=== PATIENT | male | born 1995 | race Caucasian/White ===

== ENCOUNTER 2021-09-26 08:35 | Emergency (ER) | payer OTHER, SELFPAY ==
[2021-09-26 08:35] VITALS: BP 129/80; PULSE 67; RESP 19; TEMP 36.3; O2SAT 99; BMI 22.6
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
[2021-09-26 09:06] LABS: Microscopic, Urine URINE MICROSCOPIC (MICROSCOPIC)
[2021-09-26 09:11] LABS: Appearance,Urine CLEAR (Clear); Bilirubin,Urine Negative (Negative); Blood, Urine Negative (Negative); Color,Urine YELLOW (Yellow); Glucose,Urine (UA) Negative (Negative); Ketones,Urine Negative (Negative); Leukocyte Esterase,Urine Negative (Negative); Nitrate,Urine Negative (Negative); Protein,Urine Negative (Negative); Specific Gravity, Urine >= 1.030 (1.005-1.030); Urobilinogen,Urine 0.2 EU/dl (0.2)
[2021-09-26 09:12] VITALS: BP 129/80; PULSE 67; RESP 19; TEMP 36.3; O2SAT 99
[2021-09-26 09:25] LABS: Bacteria,Urine Trace /lpf; RBC,Urine Occasional #/hpf (0-3)
[2021-09-28 05:36] LABS: Neisseria gonorrhoeae, NAA Negative (Negative)
== END 2021-09-26 09:20 | disposition home or self-care (01) ==
PROVIDERS: Emergency Provider Nurse Practitioner; PCP Internal Medicine Adolescent Medicine
DX: N48.89 Other specified disorders of penis (principal); R21 Rash and other nonspecific skin eruption; Z20.2 Contact with and (suspected) exposure to infections with a predominantly sexual mode of transmission
CPT/HCPCS: 81001; 87086; 87491; 87591; 96372; 99212; G0463; J0696

== ENCOUNTER 2023-12-31 17:37 | Emergency (ER) | payer SELFPAY ==
[2023-12-31] VITALS (7 sets, daily range): BP systolic 116–164; BP diastolic 73–90; PULSE 65–88; RESP 15–20; TEMP 36.8–37.2; O2SAT 96–99; BMI 23.0
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
[2023-12-31 17:58] LABS: Albumin Level 4.8 g/dl (3.5-5.0); Chloride 108 mmol/L (98-107); Potassium 3.9 mmoL/L (3.5-5.1); Sodium 139 mmol/L (136-145)
--- NOTE | 2023-12-31 17:58 | PC.NURSE ---
pt out of room with Rad for CT
[2023-12-31 17:59] LABS: Basophils # 0.1 K/mm3 (0-0.2); Basophils % 0.8 % (0.1-2.0); Eosinophils # 0.2 K/mm3 (0.0-0.4); Eosinophils % 1.5 % (0.1-12.0); Hematocrit 47.8 % (42.0-52.0); Hemoglobin 15.8 g/dL (14.1-18.0); Lymphocytes # 2.9 K/mm3 (0.7-4.5); Lymphocytes % 28.1 % (10-50); Mean Corpuscular Hemoglobin 32.7 pg (27.0-31.2); Mean Corpuscular Volume 99.2 fl (80-94); Mean Platelet Volume 8.3 fl (7.4-10.4); Monocytes # 0.6 K/mm3 (0.1-1.0); Monocytes % 5.8 % (1.7-9.3); Neutrophils # 6.6 K/mm3 (1.8-7.8); Neutrophils % 63.8 % (37.0-80.0); Platelet Count 208 K/mm3 (142-424); Red Blood Count 4.82 M/mm3 (4.60-6.20); Red Cell Distribution Width 13.2 % (11.5-17.5); White Blood Count 10.4 K/mm3 (4.8-10.8)
[2023-12-31 18:01] LABS: Alanine Aminotransferase 26 U/L (12-78); Albumin/Globulin Ratio 1.8 (1.1-1.8); Alkaline Phosphatase 79 U/L (38-126); Anion Gap 7.9 mEq/L (5-15); Aspartate Amino Transferase 37 U/L (17-59); Bilirubin,Total 0.6 mg/dl (0.2-1.3); Blood Urea Nitrogen 23 mg/dl (9-20); Carbon Dioxide 27 mmol/L (22.0-30.0); Creatinine Clearance Estimated 115 mL/min (50-200); Estimated Glomerular Filt Rate 88 ml/min (>60); GFR (African American) 107 ML/MIN (>60); Globulin 2.7 g/dL (1.3-3.2); Total Protein,Serum 7.5 g/dl (6.3-8.2)
[2023-12-31 18:02] LABS: Calcium 9.3 mg/dl (8.4-10.2); Glucose 90 mg/dl (74-100)
[2023-12-31 18:06] LABS: Activated Partial Thrombo Time 26.3 seconds (22.8-30.6); INR 0.95 (0.9-1.1); Prothrombin Time 10.7 seconds (10.1-12.5)
[2023-12-31] MEDS: 0.9 % SODIUM CHLORIDE 50 ML VIAL IV (18:16)
[2023-12-31] MEDS: SODIUM CHLORIDE 0.9% 10ML SYR (RAD ONLY) 10 ML IV (18:16)
[2023-12-31] MEDS: IOPAMIDOL-370 (76%);100ML BOTTLE 80 ML IV (18:16)
--- NOTE | 2023-12-31 18:20 | PC.NURSE ---
PT RETURNED FROM CT
[2023-12-31] MEDS: ACETAMINOPHEN 1,000MG/100ML VIAL 1000 MG IV (18:26)
[2023-12-31] MEDS: KETOROLAC 30MG/ML VIAL 15 MG IV (18:27)
[2023-12-31] MEDS: LACTATED RINGERS 1000ML 1,000 ML 999 ML IV (18:27)
--- NOTE | 2023-12-31 18:39 | PC.NURSE ---
PT RETURNED FROM XR
--- NOTE | 2023-12-31 18:51 | PC.NURSE ---
called RAD to power share images to [facility] at this time.
--- NOTE | 2023-12-31 18:56 | PC.NURSE ---
calling [facility] at this time.
--- NOTE | 2023-12-31 19:02 | PC.NURSE ---
on phone with at this time.
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
[2023-12-31 19:13] LABS: Microscopic, Urine URINE MICROSCOPIC (MICROSCOPIC)
[2023-12-31 19:18] LABS: Appearance,Urine CLEAR (Clear); Bilirubin,Urine Negative (Negative); Blood, Urine Negative (Negative); Color,Urine YELLOW (Yellow); Glucose,Urine (UA) Negative (Negative); Ketones,Urine Negative (Negative); Leukocyte Esterase,Urine Negative (Negative); Nitrate,Urine Negative (Negative); PH,Urine 6.5 (5.0-8.5); Protein,Urine Negative (Negative); Specific Gravity, Urine 1.015 (1.005-1.030); Urobilinogen,Urine 0.2 EU/dl (0.2)
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
[2023-12-31 19:31] LABS: RBC,Urine Occasional #/hpf (0-3); Squamous Epithelial Cell,Urine Occasional #/hpf (0-5); WBC,Urine Occasional #/hpf (0-3)
== END 2023-12-31 21:46 | disposition home or self-care (01) ==
PROVIDERS: Emergency Provider Emergency Medicine; PCP Internal Medicine Adolescent Medicine
DX: S37.061A Major laceration of right kidney, initial encounter (principal); S43.102A Unspecified dislocation of left acromioclavicular joint, initial encounter; M25.551 Pain in right hip; M54.6 Pain in thoracic spine; V49.40XA Driver injured in collision with unspecified motor vehicles in traffic accident, initial encounter
CPT/HCPCS: 70450; 71275; 72125; 72128; 72131; 72192; 73030; 73060; 73070; 73080; 73502; 73552; 73562; 74174; 80053; 81001; 85025; 85610; 85730; 96361; 96374; 96375; 99285; J0131; J1885; J7120; Q9967